=== PATIENT | male | born 2000 | race Caucasian/White ===

== ENCOUNTER 2022-09-01 20:34 | Emergency (ER) | payer SELFPAY ==
[~2022-09-01] VITALS: Ht 175.3 cm; Wt 97.5 kg
[2022-09-01 21:07] VITALS: BP 166/89
== END 2022-09-01 21:07 | disposition home or self-care (01) ==
LOC: FSED 20:54
DX: T16.1XXA Foreign body in right ear, initial encounter (principal)
CPT/HCPCS: 30999; 99282